=== PATIENT | female | born 1975 | race Caucasian/White ===

== ENCOUNTER 2021-07-16 04:16 | Day surgery (SDC) | payer OTHER ==
[2021-07-14 13:04] VITALS: BMI 18.7
[2021-07-16] MEDS ORDERED: MIDAZOLAM HCL 2 MG/2 ML SINGLE DOSE VIAL ONE ×2 (14:15)
[2021-07-16] MEDS ORDERED: PROPOFOL 20 ML ONE ×3 (14:17→14:50)
[2021-07-16] MEDS ORDERED: KETAMINE HCL 200 MG/20 ML VIAL ONE (14:44)
[2021-07-16] MEDS ORDERED: DEXAMETHASONE SOD PHOSPHATE 4 MG/1 ML VIAL ONE (14:49)
[2021-07-16] MEDS ORDERED: ACETAMINOPHEN INJECTION 100 ML IVPB ONE (14:49)
[2021-07-16] MEDS ORDERED: KETOROLAC TROMETHAMINE 30 MG/1 ML VIAL ONE (15:05)
[2021-07-16] MEDS ORDERED: IBUPROFEN 800 MG/8 ML IJ IVPB PRN (15:15)
[2021-07-16] MEDS ORDERED: oxyCODONE HCL 5 MG TABLET PO PRN (15:15)
[2021-07-16] MEDS ORDERED: ELECTROLYTE-148 SOLN 1,000 ML IV SCH (15:15)
[2021-07-16] MEDS ORDERED: ONDANSETRON 4 MG/2 ML VIAL IVPUSH PRN (15:15)
[2021-07-16] MEDS ORDERED: IBUPROFEN 600 MG TABLET (FP) PO PRN (15:15)
[2021-07-16] MEDS ORDERED: PROMETHAZINE HCL 25 MG/1 ML VIAL IVPUSH PRN (15:30)
[2021-07-16] MEDS: MEPERIDINE HCL 25 MG/ML VIAL IVPUSH PRN ×4 (15:30→16:43)
[2021-07-16] MEDS ORDERED: LACTATED RINGERS SOLUTION 1,000 ML IV SCH (15:30)
[2021-07-16] MEDS ORDERED: MEPERIDINE HCL 25 MG/ML VIAL ONE ×2 (15:31→15:55)
[2021-07-16 18:15] VITALS: BP 85/54; PULSE 64; TEMP 98.7
== END 2021-07-16 18:15 | disposition home or self-care (01) ==
LOC: JASU-SURG 04:16
PROVIDERS: ATTEND Obstetrics & Gynecology
PROC: 0UDB7ZX Extraction of Endometrium, Via Natural or Artificial Opening, Diagnostic (ICD-10-PCS; 2021-07-16)
PROC: 0UB98ZX Excision of Uterus, Via Natural or Artificial Opening Endoscopic, Diagnostic (ICD-10-PCS; principal; 2021-07-16 15:00)
DX: N93.8 Other specified abnormal uterine and vaginal bleeding (principal); N84.0 Polyp of corpus uteri
CPT/HCPCS: 81025; 88305-TC; 94760